=== PATIENT | female | born 2000 | race Hispanic/Latino ===

== ENCOUNTER 2022-10-12 18:32 | Emergency (ER) | payer BC, OTHER ==
[~2022-10-12] VITALS: Ht 147.3 cm; Wt 77.1 kg
[2022-10-12 20:50] VITALS: BP 114/64
== END 2022-10-12 20:50 | disposition home or self-care (01) ==
LOC: FSED 18:36
DX: O03.9 Complete or unspecified spontaneous abortion without complication (principal)
CPT/HCPCS: 36415; 76817; 80048; 81003; 81025; 84702; 85025; 86900; 99283

== ENCOUNTER 2022-10-31 18:08 | Emergency (ER) | payer BC, OTHER ==
[~2022-10-31] VITALS: Ht 152.4 cm; Wt 81.6 kg
[2022-10-31] MEDS ORDERED: IOPAMIDOL 370 MG/ML 100 ML INFUS..BTL INJ ONE (19:56)
[2022-10-31 21:26] VITALS: O2SAT 100
[2022-10-31] MEDS ORDERED: ANUSOL-HC25 MG RC (22:04)
[2022-10-31] MEDS ORDERED: PANTOPRAZOLE SO40 MG PO (22:14)
== END 2022-10-31 22:29 | disposition home or self-care (01) ==
LOC: FSED 18:22
DX: K92.1 Melena (principal); R10.30 Lower abdominal pain, unspecified
CPT/HCPCS: 74177; 80048; 80076; 81003; 81025; 85025; 99284; C9113; Q9967